=== PATIENT | female | born 1955 | race Caucasian/White ===

== ENCOUNTER 2018-06-02 13:15 | Observation (INO) | payer OTHER ==
--- OUTSIDE RECORDS SUMMARY | 2018-06-02 13:18 | XMS REPORT | Continuity of Care Document ---
:1955 Author Organization Interface Problems Problem Status Onset Classification Date Comments Source Date Reported RESPIRATORY Active 04/18/20 [facility] FAILURE 17 AMS Active 04/18/20 [facility] 17 Anxiety Resolved Problem 04/25/2017 [facility] Bipolar 1 Resolved Problem 04/25/2017 with schizo [facility] disorder<sup>1< affects /sup> History of Active Problem 04/25/2017 [facility] substance abuse Depression Resolved Problem 04/25/2017 [facility] ACUTE Active [facility] RESPIRATORY FAILURE, UNSP W HYPOXI Medications Medication Details Route Status Patient Ordering Order Source Instructions Provider Date Glucagon 1 mg, Route: No Longer IM, Drug form: Active 2016 [facility] PDR/INJ, PRN, Dosing Weight 111.4, kg, PRN Blood Glucose Results, Start date: 04/21/17 21:59:00 CDT, Duration: 30 day, Stop date: 05/21/17 21:58:00 CDT Dextrose 50% 12.5 gm, 25 No Longer Syringe mL, Route: Active 2016 [facility] IVP, Drug Form: INJ, Dosing Weight 111.4, kg, PRN, PRN Blood Glucose Results, Start date: 04/21/17 21:59:00 CDT, Duration: 30 day, Stop date: 05/21/17 21:58:00 CDT Insulin, Aspart, 6 unit, 0.06 No Longer Human mL, Route: Active 2016 [facility] SUB-Q, Drug form: SOLN, TID-Before Meals, Dosing Weight 111.4, kg, PRN Blood Glucose Results, Start date: 04/21/17 21:59:00 CDT, Duration: 30 day, Stop date: 05/21/17 21:58:00 CDTNotes: Roll in palms of hands gently; Do not shake vigorously. (Same as: NovoLOG) "single patient use only" WASTE: F/P - Black; E - Municipal Trash Bin Stable for 28 days at room temperature. Expires in days from Date Dextrose 50% in 50 mL, Route: No Longer Water IV IVP, Start Active 2016 [facility] date: 04/21/17 21:56:00 CDT, Duration: 30 day, Stop date: 05/21/17 21:55:00 CDT, PRN Blood Glucose Results glucagon 1 mg, Route: No Longer IV, Drug form: Active 2016 [facility] PDR/INJ, PRN, PRN Blood Glucose Results, Start date: 04/21/17 21:56:00 CDT, Duration: 30 day, Stop date: 05/21/17 21:55:00 CDT insulin aspart 15 unit, 0.15 No Longer mL, Route: Active 2016 [facility] SUB-Q, Drug form: SOLN, Sliding Scale, PRN Blood Glucose Results, Start date: 04/21/17 21:56:00 CDT, Duration: 30 day, Stop date: 05/21/17 21:55:00 CDTNotes: Roll in palms of hands gently; Do not shake vigorously. (Same as: NovoLOG) "single patient use only" WASTE: F/P - Black; E - Municipal Trash Bin Stable for 28 days at room temperature. Expires in days from Date insulin aspart 3 unit, 0.03 No Longer mL, Route: Active 2016 [facility] SUB-Q, Drug form: SOLN, Sliding Scale, PRN Blood Glucose Results, Start date: 04/21/17 21:55:00 CDT, Duration: 30 day, Stop date: 05/21/17 21:54:00 CDTNotes: Roll in palms of hands gently; Do not shake vigorously. (Same as: NovoLOG) "single patient use only" WASTE: F/P - Black; E - Municipal Trash Bin Stable for 28 days at room temperature. Expires in days from Date Haldol 1 mg, 0.2 mL, No Longer Route: IV, Active 2016 [facility] Drug form: INJ, TID, Dosing Weight 111.4, kg, PRN as needed for agitation, Start date: 04/21/17 17:56:00 CDT, Duration: 30 day, Stop date: 05/21/17 17:55:00 CDTNotes: (Same as: Haldol) Cipro 500 mg, 1 tab, No Longer Route: PO, Active 2016 [facility] Drug form: TAB, [id number], Start date: 04/20/17 20:00:00 CDT, Stop date: 04/23/17 8:00:00 CDT, ABX Indication: Urinary Tract InfectionNotes : May interfere w/enteral feedings - Take 1 hr before or 2 hrs after antacids, dairy pdt & minerals. On empty stomach. Metformin 500 mg, 1 tab, No Longer hydrochloride Route: PO, Active 2016 [facility] 500 MG Oral Drug form: Tablet TAB, BID-Meals, Dosing Weight 111.4, kg, Start date: 04/20/17 17:00:00 CDT, Duration: 30 day, Stop date: 05/20/17 8:00:00 CDTNotes: (Same as: Glucophage) Take with meal Cipro 250 mg, Route: Inactive PO, Drug form: 2016 [facility] TAB, [id number], Dosing Weight 111.4, kg, Start date: 04/20/17 16:00:00 CDT, Duration: 3 day, Stop date: 04/23/17 4:00:00 CDT, ABX Indication: Urinary Tract Infection Nicotine 7 mg, 1 patch, No Longer Route: TOP, Active 2016 [facility] Drug form: ERFILM, Daily, Dosing Weight 111.4, kg, Start date: 04/20/17 9:00:00 CDT, Duration: 30 day, Stop date: 05/19/17 9:00:00 CDTNotes: (Same as: Habitrol) "Remove old patch before application of new patch" WASTE: F/P - P Waste Black; E - P Waste Black remove patch 1 patch, No Longer Route: TOP, Active 2016 [facility] Drug form: ERFILM, Daily, Start date: 04/20/17 9:00:00 CDT, Duration: 30 day, Stop date: 05/19/17 9:00:00 CDTNotes: Remove old patch before application of new patch. WASTE: F/P - P Waste Black; E - P Waste Black potassium 20 mEq, 1 tab, Inactive chloride Route: PO, 2016 [facility] Drug form: ERTAB, ONCE, Dosing Weight 111.4, kg, Start date: 04/19/17 21:33:00 CDT, Stop date: 04/19/17 21:33:00 CDTNotes: (Same as: K-Dur 20) "Do Not Crush" With food and full glass of water Seroquel 100 mg, 1 tab, No Longer Route: PO, Active 2016 [facility] Drug form: TAB, Bedtime, Dosing Weight 111.4, kg, Start date: 04/19/17 21:00:00 CDT, Duration: 30 day, Stop date: 05/18/17 21:00:00 CDTNotes: (Same as: SEROquel) Benztropine 1 mg, 1 tab, No Longer Route: PO, Active 2016 [facility] Drug form: TAB, BID, Dosing Weight 111.4, kg, Start date: 04/19/17 17:00:00 CDT, Duration: 30 day, Stop date: 05/19/17 9:00:00 CDTNotes: (Same As: Cogentin) gabapentin 600 mg, 2 cap, No Longer Route: PO, Active 2016 [facility] Drug form: CAP, Q8H, Dosing Weight 111.4, kg, (CrCl > 60 ml/min), Start date: 04/19/17 16:00:00 CDT, Duration: 30 day, Stop date: 05/19/17 8:00:00 CDTNotes: (Same as: Neurontin) lithium 300 mg 300 mg=1 tab, Active oral tablet PO, Bedtime, 0 2016 [facility] Refill(s) Mucinex 600 mg, PO, No Longer Q12H, PRN Active 2016 [facility] Congestion, 0 Refill(s) Clonidine 0.1 mg=1 tab, No Longer Hydrochloride PO, Q4H, PRN Active 2016 [facility] 0.1 MG Oral Withdrawal, 0 Tablet Refill(s) Aluminum 30 mL, PO, No Longer Hydroxide 40 Q4H, PRN Active 2016 [facility] MG/ML / Heartburn, 0 Magnesium Refill(s) Hydroxide 40 MG/ML Oral Suspension Trazodone 100 mg=1 tab, Active Hydrochloride PO, Bedtime, 2016 [facility] 100 MG Oral PRN Insomnia, Tablet 0 Refill(s) Amoxicillin 500 mg, PO, No Longer TID, 0 Active 2016 [facility] Refill(s) methocarbamol 1,500 mg=2 No Longer 750 mg oral tab, PO, BID, Active 2016 [facility] tablet PRN Muscle Spasms, 0 Refill(s) Hydroxyzine 50 mg=1 tab, No Longer Hydrochloride 50 PO, TID, # 40 Active 2016 [facility] MG Oral Tablet tab, 0 Refill(s) gabapentin 600 600 mg=1 tab, No Longer MG Oral Tablet PO, TID, # 270 Active 2016 [facility] tab, 0 Refill(s) Acetaminophen 650 mg, PO, No Longer Q4H, PRN Pain Active 2016 [facility] Score 1-5, 0 Refill(s) chlorproMAZINE 50 mg=1 tab, Active 50 mg oral PO, Bedtime, 0 2016 [facility] tablet Refill(s) QUEtiapine 100 100 mg=1 tab, Active mg oral tablet PO, Bedtime, 0 2016 [facility] Refill(s) Buprenorphine 6 mg, SL, TID, No Longer 0 Refill(s) Active 2016 [facility] Icy Hot 1 appl, TOP, No Longer BID, 0 Active 2016 [facility] Refill(s) magnesium 2.4 gm=30 mL, No Longer hydroxide 8% PO, Q6H, PRN Active 2016 [facility] oral suspension as needed for constipation, 0 Refill(s) benztropine 1 mg 1 mg=1 tab, Active oral tablet PO, BID, # 60 2016 [facility] tab, 0 Refill(s) potassium 45 mmol, 15 No Longer phosphate + mL, Route: Active 2016 [facility] sodium chloride IVPB, PRN, 0.9% INJ 250 mL Dosing Weight 111.4, kg, PRN Abnormal Lab Result, Start date: 04/19/17 3:37:00 CDT, Duration: 30 day, Stop date: 05/19/17 3:36:00 CDT, FOR ICU USE ONLYNotes: (Same as: K Phosphate.) 1 mMol phoshate has 1.47 mEq potassium Infuse over 4 hours Magnesium Oxide 800 mg, 2 tab, No Longer Route: PO, Active 2016 [facility] Drug form: TAB, PRN, Dosing Weight 111.4, kg, PRN Abnormal Lab Result, FOR ICU USE ONLY, Start date: 04/19/17 3:37:00 CDT, Duration: 30 day, Stop date: 05/19/17 3:36:00 CDTNotes: (Same as: Mag-Ox 400) Magnesium oxide [id number] elemental magnesium Dose=____mg magnesium oxide (___mg elemental magnesium) Magnesium 2 gm, 50 mL, No Longer Sulfate Route: IVPB, Active 2016 [facility] Drug form: INJ, PRN, Dosing Weight 111.4, kg, PRN Abnormal Lab Result, Start date: 04/19/17 3:37:00 CDT, Duration: 30 day, Stop date: 05/19/17 3:36:00 CDT, FOR ICU USE ONLYNotes: WASTE: F/P - Sink; E - Municipal Trash Bin potassium 2 pkt, Route: No Longer phosphate-sodium PO, Drug Form: Active 2016 [facility] phosphate 250 PDR/REC, mg-280 mg-160 mg Dosing Weight oral powder for 111.4, kg, reconstitution PRN, PRN Abnormal Lab Result, FOR ICU USE ONLY, Start date: 04/19/17 3:37:00 CDT, Duration: 30 day, Stop date: 05/19/17 3:36:00 CDTNotes: (Same as: Phos-NaK) Each 1.5 gm pkt has 250mg phosphorous. Mix w/2.5oz water and stir. potassium 30 mmol, 250 No Longer phosphate mL, Route: Active 2016 [facility] IVPB, Drug form: INJ, PRN, Dosing Weight 111.4, kg, PRN Abnormal Lab Result, Start date: 04/19/17 3:37:00 CDT, Duration: 30 day, Stop date: 05/19/17 3:36:00 CDT, FOR ICU USE ONLYNotes: (Same as: K Phosphate.) sodium phosphate 45 mmol, 15 No Longer + sodium mL, Route: Active 2016 [facility] chloride 0.9% IVPB, PRN, INJ 250 mL Dosing Weight 111.4, kg, PRN Abnormal Lab Result, Start date: 04/19/17 3:37:00 CDT, Duration: 30 day, Stop date: 05/19/17 3:36:00 CDT, FOR ICU USE ONLY sodium phosphate 30 mmol, 250 No Longer mL, Route: Active 2016 [facility] IVPB, Drug form: INJ, PRN, Dosing Weight 111.4, kg, PRN Abnormal Lab Result, Start date: 04/19/17 3:37:00 CDT, Duration: 30 day, Stop date: 05/19/17 3:36:00 CDT, FOR ICU USE ONLY Calcium 1 gm, 50 mL, No Longer Gluconate Route: IVPB, Active 2016 [facility] Drug form: INJ, PRN, Dosing Weight 111.4, kg, PRN Abnormal Lab Result, Start date: 04/19/17 3:37:00 CDT, Duration: 30 day, Stop date: 05/19/17 3:36:00 CDT, FOR ICU USE ONLYNotes: WASTE: F/P - Sink; E - Municipal Trash Bin Calcium 1,000 mg, 2 No Longer Carbonate 500 MG tab, Route: Active 2016 [facility] Chewable Tablet PO, Drug form: CHEWTAB, PRN, Dosing Weight 111.4, kg, PRN Abnormal Lab Result, FOR ICU USE ONLY, Start date: 04/19/17 3:37:00 CDT, Duration: 30 day, Stop date: 05/19/17 3:36:00 CDTNotes: (Same As: Tumsreekanth) Calcium Carbonate 500 rd=662 mg elemental calcium Dose= mg calcium carbonate ( mg elemental calcium) potassium 10 mEq, 100 No Longer chloride mL, Route: Active 2016 [facility] IVPB, Drug form: INJ, PRN, Dosing Weight 111.4, kg, PRN Abnormal Lab Result, Via peripheral line, Start date: 04/19/17 3:37:00 CDT, Duration: 30 day, Stop date: 05/19/17 3:36:00 CDT, FOR ICU USE ONLYNotes: Infuse at a rate of 10 mEq/hr. (Same as: KCL) ocular lubricant 1 appl, Route: Inactive BOTH EYES, 2016 [facility] Q6H, Drug form: OINT, Start date: 04/19/17 0:00:00 CDT, Duration: 30 day, Stop date: 05/18/17 18:00:00 CDTNotes: (Same as: Lacri-Lube, Duratears Naturale, Artificial Tears, and Tears Again ) cefepime 1 gm, Route: Inactive IVPB, ABXQ8H, 2016 [facility] Dosing Weight 111.4, kg, (CrCl >/=50 ml/min), Start date: 04/18/17 22:00:00 CDT, Duration: 5 day, Stop date: 04/23/17 14:00:00 CDT, ABX Indication: Urinary Tract InfectionNotes : (Same As: Maxipime) MEDICATION WASTE Product Size: 1000 mg Product Wasted: _0__ mg chlorhexidine 15 mL, Route: Inactive gluconate 1.2 Swab Mouth, 2016 [facility] MG/ML Mouthwash Q12H, Drug form: LIQ, Start date: 04/18/17 21:00:00 CDT, Duration: 30 day, Stop date: 05/18/17 9:00:00 CDTNotes: (Same As: Peridex) Saline Flush 10 ml, Route: No Longer 0.9% IVP, Drug Active 2016 [facility] Form: INJ, Dosing Weight 111.364, kg, Q12H, Start date: 04/18/17 21:00:00 CDT, Duration: 30 day, Stop date: 05/18/17 9:00:00 CDTNotes: (Same as: BD Posiflush) Famotidine 20 mg, 2 mL, No Longer Route: IVP, Active 2016 [facility] Drug form: INJ, Q12H, Dosing Weight 111.4, kg, Start date: 04/18/17 21:00:00 CDT, Duration: 30 day, Stop date: 05/18/17 9:00:00 CDTNotes: (Same as: Pepcid) Can be dilute in 5-10cc NS IVP: Slow IV push over at least 2 minutes. Levemir 15 unit, 0.15 No Longer mL, Route: Active 2016 [facility] SUB-Q, Drug form: INJ, Q12H, Dosing Weight 111.4, kg, Start date: 04/18/17 20:48:00 CDT, Duration: 30 day, Stop date: 05/18/17 9:00:00 CDTNotes: Same as Levemir Do not hold insulin without contacting prescriber WASTE: F/P - Black; E - [employer] Trash Bin "single patient use only" chlorhexidine 15 mL, Route: No Longer gluconate 1.2 Swab Mouth, Active 2016 [facility] MG/ML Mouthwash PRN, Drug form: LIQ, PRN Other -See Comment, Start date: 04/18/17 20:07:00 CDT, Duration: 30 day, Stop date: 05/18/17 20:06:00 CDTNotes: (Same As: Peridex) Ciprofloxacin 400 mg, 200 No Longer mL, Route: Active 2016 [facility] IVPB, Drug form: INJ, [id number], Dosing Weight 111.4, kg, Start date: 04/18/17 19:00:00 CDT, Duration: 5 day, Stop date: 04/23/17 8:00:00 CDT, ABX Indication: Urinary Tract InfectionNotes : Do not refrigerate Albuterol 0.833 3 mL, Route: No Longer MG/ML / NEB, Drug Active 2016 [facility] Ipratropium Form: SOLN, [place] 0.167 Dosing Weight MG/ML Inhalant 111.364, kg, Solution RQ4H, Start date: 04/18/17 19:00:00 CDT, Duration: 30 day, Stop date: 05/18/17 15:00:00 CDTNotes: (Same as: Duoneb) ocular lubricant 1 appl, Route: Inactive BOTH EYES, 2016 [facility] Q6H, Drug form: OINT, Start date: 04/18/17 18:00:00 CDT, Duration: 30 day, Stop date: 05/18/17 12:00:00 CDTNotes: (Same as: Lacri-Lube, Duratears Naturale, Artificial Tears, and Tears Again ) glucagon 1 mg, Route: No Longer INJ, Drug Active 2016 [facility] form: PDR/INJ, PRN, PRN Blood Glucose Results, Start date: 04/18/17 17:38:00 CDT, Duration: 30 day, Stop date: 05/18/17 17:37:00 CDT Dextrose 50% in 25 gm, 50 mL, No Longer Water IV Route: IVP, Active 2016 [facility] Drug Form: INJ, PRN, PRN Blood Glucose Results, Start date: 04/18/17 17:38:00 CDT, Duration: 30 day, Stop date: 05/18/17 17:37:00 CDT insulin aspart 12 unit, 0.12 No Longer mL, Route: Active 2016 [facility] SUB-Q, Drug form: SOLN, Sliding Scale, PRN Blood Glucose Results, Start date: 04/18/17 17:38:00 CDT, Duration: 30 day, Stop date: 05/18/17 17:37:00 CDTNotes: Roll in palms of hands gently; Do not shake vigorously. (Same as: NovoLOG) "single patient use only" WASTE: F/P - Black; E - Municipal Trash Bin Stable for 28 days at room temperature. Expires in days from Date insulin aspart 6 unit, 0.06 No Longer mL, Route: Active 2016 [facility] SUB-Q, Drug form: SOLN, Sliding Scale, PRN Blood Glucose Results, Start date: 04/18/17 17:37:00 CDT, Duration: 30 day, Stop date: 05/18/17 17:36:00 CDTNotes: Roll in palms of hands gently; Do not shake vigorously. (Same as: NovoLOG) "single patient use only" WASTE: F/P - Black; E - Municipal Trash Bin Stable for 28 days at room temperature. Expires in days from Date chlorhexidine 15 mL, Route: Inactive gluconate 1.2 Swab Mouth, 2016 [facility] MG/ML Mouthwash PRN, Drug form: LIQ, PRN Other -See Comment, Start date: 04/18/17 17:11:00 CDT, Duration: 30 day, Stop date: 05/18/17 17:10:00 CDTNotes: (Same As: Peridex) Etomidate 20 mg, 10 mL, Inactive Route: IVP, 2016 [facility] Drug form: INJ, ONCE, Dosing Weight 111.4, kg, Start date: 04/18/17 17:03:00 CDT, Stop date: 04/18/17 17:03:00 CDTNotes: (Same as: Amidate). Per state nursing law etomidate can only be given by a nurse if patient is intubated or being intubated (unless the nurse is a [employer]). Rocuronium 50 mg, 5 mL, Inactive Route: IVP2016 [facility] Drug form: INJ, ONCE, Dosing Weight 111.4, kg, Start date: 04/18/17 17:03:00 CDT, Stop date: 04/18/17 17:03:00 CDTNotes: (Same as: Zemelvinon) Fentanyl 1,250 No Longer microgram, 250 Active 2016 [facility] mL, Rate: Titrate, Start Dose: 50 microgram/hr, Titration: 25 micrograms/tiffany r every 15 minutes, Goal(s): rass of 0 to -1, Max Dose: 300 microgram/hr, Route: IV, Dosing Weight 111.4 kg, Total Volume: 250, Start date: 04/18/17 16:58...Notes: Concentration: 5 microgram / ml Fentanyl 50 microgram, Inactive 1 mL, Route: 2016 [facility] IVP, Drug form: INJ, ONCE, Dosing Weight 111.4, kg, Start date: 04/18/17 16:47:00 CDT, Stop date: 04/18/17 16:47:00 CDTNotes: (Same as: Sublimaze) Preservative free. hydrALAZINE 10 mg, 0.5 mL, No Longer Route: IVP, Active 2016 [facility] Drug form: INJ, Q4H, PRN Elevated BP, Start date: 04/18/17 16:24:00 CDT, Duration: 30 day, Stop date: 05/18/17 16:23:00 CDTNotes: (Same as: Apresoline) Push over 5 minutes Sodium Chloride 250 mL, Route: No Longer 0.9% IV IVPB, Start Active 2016 date: 04/18/17 16:21:00 CDT, Duration: 30 day, Stop date: 05/18/17 16:20:00 CDT, PRN Line Flush heparin 5,000 unit, 1 No Longer mL, Route: Active 2016 [facility] SUB-Q, Drug form: INJ, Q8H, Dosing Weight 111.364, kg, Start date: 04/18/17 16:00:00 CDT, Duration: 30 day, Stop date: 05/18/17 8:00:00 CDTNotes: porcine heparin Labetalol 5 mg, Route: Inactive IVP, Drug 2016 [facility] form: INJ, Q3H, Dosing Weight 111.364, kg, PRN Hypertension, Start date: 04/18/17 14:48:00 CDT, Duration: 30 day, Stop date: 05/18/17 14:47:00 CDT Saline Flush 10 ml, Route: Inactive 0.9% IVP, Drug 2016 [facility] Form: INJ, Dosing Weight 111.364, kg, PRN, PRN Line Flush, Start date: 04/18/17 14:43:00 CDT, Duration: 30 day, Stop date: 05/18/17 14:42:00 CDTNotes: (Same as: BD Posiflush) Nystatin 100 1 appl, Route: No Longer UNT/MG Topical TOP, PRN, Drug Active 2016 [facility] Powder form: PWDR, PRN For Fungal Prophylaxis, Start date: 04/18/17 14:43:00 CDT, Duration: 30 day, Stop date: 05/18/17 14:42:00 CDTNotes: (Same as:Mycostatin, Nilstat) For external use only. Cipro 400 mg, 200 Inactive mL, Route: 2016 [facility] IVPB, Drug form: INJ, ONCE, Dosing Weight 111.364, kg, Priority: STAT, Start date: 04/18/17 12:57:00 CDT, Duration: 1 doses or times, Stop date: 04/18/17 12:57:00 CDT, ABX Indication: PneumoniaNotes : Do not refrigerate cefepime 1 gm, Route: Inactive IVPB, ONCE, 2016 [facility] Dosing Weight 111.364, kg, Priority: STAT, Start date: 04/18/17 12:57:00 CDT, Duration: 1 doses or times, Stop date: 04/18/17 12:57:00 CDT, ABX Indication: PneumoniaNotes : (Same As: Maxipime) MEDICATION WASTE Product Size: 1000 mg Product Wasted: ___ mg Solu-Medrol 125 mg, 2 mL, Inactive Route: IVP, 2016 [facility] Drug form: INJ, ONCE, Dosing Weight 111.364, kg, Priority: STAT, Start date: 04/18/17 12:55:00 CDT, Stop date: 04/18/17 12:55:00 CDTNotes: (Same as:Solu-MEDROL , A-Methapred) Albuterol 0.833 3 mL, Route: Inactive MG/ML / NEB, Drug 2016 [facility] Ipratropium Form: SOLN, [place] 0.167 Dosing Weight MG/ML Inhalant 111.364, kg, Solution ONCE, STAT, Start date: 04/18/17 12:08:00 CDT, Stop date: 04/18/17 12:08:00 CDTNotes: (Same as: Duoneb) Saline Flush 10 mL, Route: No Longer 0.9% IVP, Drug Active 2016 [facility] Form: INJ, Dosing Weight 111.364, kg, PRN, PRN Line Flush, Start date: 04/18/17 12:05:00 CDT, Duration: 30 day, Stop date: 05/18/17 12:04:00 CDTNotes: (Same as: BD Posiflush) Furosemide 40 mg, 4 mL, Inactive Route: IVP, 2016 [facility] Drug form: INJ, ONCE, Dosing Weight 111.364, kg, Priority: STAT, Start date: 04/18/17 12:05:00 CDT, Stop date: 04/18/17 12:05:00 CDTNotes: (Same as: Lasix) MEDICATION WASTE Product Size: 40 mg Product Wasted: ___ mg Allergies, Adverse Reactions, Alerts Substance Category Reaction Severity Reaction Status Date Comments Source type Reported NKDA Assertion Drug Active allergy [facility] Immunizations Immunization Date Site Status Last Comments Source Given Updated pneumococcal Right completed [place] [facility] 23-valent 7 deltoid vaccine Results Order Name Results Value Reference Date Interpretation Comments Source Range HEMATOLOGY RDW 13.9 % 11.5 - 04/21 14. [facility] HEMATOLOGY Platelet 217 K/CMM 133 - 450 04/21 [facility] HEMATOLOGY MPV 9.8 fL 7.4 - 10.4 04/21 [facility] HEMATOLOGY Hgb 12.8 g/dL 12.0 - 04/21 16.0 [facility] HEMATOLOGY Hct 38.5 % 36.0 - 04/21 48.0 [facility] HEMATOLOGY MCV 91.5 fL 80.0 - 04/21 98.0 [facility] HEMATOLOGY MCH 30.4 pg 27.0 - 04/21 MH 31.0 [facility] HEMATOLOGY MCHC 33.2 g/dL 32.0 - 04/21 36.0 [facility] HEMATOLOGY WBC 11.8 K/CMM 3.7 - 10.4 04/21 [facility] HEMATOLOGY RBC 4.20 M/CMM 4.20 - 04/21 5.40 /2016 [facility] CHEM PANEL Magnesium 2.1 mg/dL 1.8 - 2.4 04/20 MH Lvl [facility] CHEM PANEL Phosphorus 3.0 mg/dL 2.5 - 4.5 04/20 [facility] CHEM PANEL eGFR 106 04/20 Result Comment: The eGFR is calculated using the CKD-EPI formula. In most young, healthy individuals the eGFR will be >90 mL/ min/1.73m2. The eGFR declines with age. An eGFR of 60-89 may be normal in [facility] mL/min/1. some populations, particularly the elderly, for whom the CKD-EPI formula has not been extensively validated. Use of the eGFR is not recommended in the following populations: [place] 3m2 Individuals with unstable creatinine concentrations, including patients and those with serious co-morbid conditions. Patients with extremes in muscle mass or diet. The data above are obtained from the National Kidney Disease Education Program (NKDEP) which additionally recommends that when the eGFR is used in patients with extremes of body mass index for purposes of drug dosing, the eGFR should be multiplied by the estimated BMI. CHEM PANEL Potassium 4.0 meq/L 3.5 - 5.1 04/20 MH Lvl /2016 [facility] CHEM PANEL Sodium Lvl 140 meq/L 135 - 145 04/20 [facility] CHEM PANEL Creatinine 0.50 mg/dL 0.50 - 04/20 MH Lvl 1.40 [facility] CHEM PANEL Glucose Lvl 154 mg/dL 70 - 99 04/20 [facility] CHEM PANEL BUN 18 mg/dL 7 - 22 04/20 [facility] CHEM PANEL CO2 25 meq/L 24 - 32 04/20 [facility] CHEM PANEL AGAP 12.0 meq/L 10.0 - 04/20 MH 20.0 [facility] CHEM PANEL Chloride Lvl 107 meq/L 95 - 109 04/20 [facility] CHEM PANEL Calcium Lvl 8.9 mg/dL 8.5 - 10.5 04/20 [facility] HEMATOLOGY MCV 92.9 fL 80.0 - 04/20 MH 98.0 [facility] HEMATOLOGY MCH 30.2 pg 27.0 - 04/20 [facility] 31.0 [facility] [facility] HEMATOLOGY Hgb 11.8 g/dL 12.0 - 04/20 MH 16.0 [facility] HEMATOLOGY Hct 36.4 % 36.0 - 04/20 MH 48.0 [facility] HEMATOLOGY MCHC 32.5 g/dL 32.0 - 04/20 MH 36.0 [facility] HEMATOLOGY RDW 13.8 % 11.5 - 04/20 MH 14.5 [facility] HEMATOLOGY Platelet 181 K/CMM 133 - 450 04/20 [facility] HEMATOLOGY MPV 10.1 fL 7.4 - 10.4 04/20 [facility] HEMATOLOGY RBC 3.92 M/CMM 4.20 - 04/20 MH 5.40 [facility] HEMATOLOGY WBC 14.4 K/CMM 3.7 - 10.4 04/20 [facility] HEMATOLOGY Basophils 0.6 % 0.0 - 1.0 04/20 [facility] HEMATOLOGY Eosinophils 0.3 % 0.0 - 4.0 / MH /2016 [facility] HEMATOLOGY Monocytes 7.5 % 2.0 - 12.0 04/20 [facility] HEMATOLOGY Lymphocytes 21.0 % 20.0 - 04/20 MH 40.0 /2016 [facility] HEMATOLOGY Segs 70.6 % 45.0 - 04/20 MH 75.0 /2017 [facility] HEMATOLOGY Segs-Bands # 10.1 K/CMM 1.5 - 8.1 04/20 [facility] HEMATOLOGY Lymphocytes 3.0 K/CMM 1.0 - 5.5 /16 MH # /2017 [facility] HEMATOLOGY Basophils # 0.1 K/CMM 0.0 - 0.2 04/20 [facility] HEMATOLOGY Monocytes # 1.1 K/CMM 0.0 - 0.8 04/20 [facility] CHEM PANEL Phosphorus 3.8 mg/dL 2.5 - 4.5 04/19 [facility] CHEM PANEL eGFR 95 04/19 Result Comment: The eGFR is calculated using the CKD-EPI formula. In most young, healthy individuals the eGFR will be >90 mL/ min/1.73m2. The eGFR declines with age. An eGFR of 60-89 may be normal in mL/min/1.7 some populations, particularly the elderly, for whom the CKD-EPI formula has not been extensively validated. Use of the eGFR is not recommended in the following populations: [address] Individuals with unstable creatinine concentrations, including patients and those with serious co-morbid conditions. Patients with extremes in muscle mass or diet. The data above are obtained from the National Kidney Disease Education Program (NKDEP) which additionally recommends that when the eGFR is used in patients with extremes of body mass index for purposes of drug dosing, the eGFR should be multiplied by the estimated BMI. CHEM PANEL Potassium 3.4 meq/L 3.5 - 5.1 04/19 MH Lvl /2016 [facility] CHEM PANEL Creatinine 0.70 mg/dL 0.50 - 04/19 Lvl 1.40 /2016 [facility] CHEM PANEL BUN 23 mg/dL 7 - 22 04/19 [facility] CHEM PANEL Chloride Lvl 105 meq/L 95 - 109 04/19 [facility] CHEM PANEL CO2 28 meq/L 24 - 32 04/19 [facility] CHEM PANEL Calcium Lvl 9.3 mg/dL 8.5 - 10.5 04/19 [facility] CHEM PANEL Sodium Lvl 140 meq/L 135 - 145 04/19 [facility] CHEM PANEL Glucose Lvl 161 mg/dL 70 - 99 04/19 [facility] CHEM PANEL AGAP 10.4 meq/L 10.0 - 04/19 MH . [facility] CHEM PANEL Magnesium 2.4 mg/dL 1.8 - 2.4 04/19 [facility] PARATHYROI Ca Norm WB 1.16 1.05 - 04/19 D PROFILE mMol/L . [facility] PARATHYROI Ca Ion WB 1.16 1.05 - 04/19 D PROFILE mMol/L . [facility] CHEM PANEL Magnesium 1.8 mg/dL 1.8 - 2.4 04/19 MH [facility] CHEM PANEL Phosphorus 1.0 mg/dL 2.5 - 4.5 04/19 Result Comment: [facility] Critical Result(s) called to Hasmukh Oden at 04/19/2017 10:05 by BV. Read back OK. ELECTROLYT Sodium Lvl 140 meq/L 135 - 145 04/19 [facility] ELECTROLYT Chloride Lvl 107 meq/L 95 - 109 04/19 [facility] ELECTROLYT CO2 25 meq/L 24 - 32 04/19 [place] ELECTROLYT eGFR 100 04/19 Result Comment: The eGFR is calculated using the CKD-EPI formula. In most young, healthy individuals the eGFR will be >90 mL/ min/1.73m2. The eGFR declines with age. An eGFR of 60-89 may be normal in mL/min/1. some populations, particularly the elderly, for whom the CKD-EPI formula has not been extensively validated. Use of the eGFR is not recommended in the following populations: [facility] 3m2 Individuals with unstable creatinine concentrations, including patients and those with serious co-morbid conditions. Patients with extremes in muscle mass or diet. The data above are obtained from the National Kidney Disease Education Program (NKDEP) which additionally recommends that when the eGFR is used in patients with extremes of body mass index for purposes of drug dosing, the eGFR should be multiplied by the estimated BMI. ELECTROLYT AGAP 11.6 meq/L 10.0 - 04/19 ES [facility] ELECTROLYT Calcium Lvl 8.1 mg/dL 8.5 - 10.5 04/19 [facility] ELECTROLYT Potassium 3.6 meq/L 3.5 - 5.1 04/19 Result ES Lvl Comment: [facility] Specimen Slightly Hemolyzed. ELECTROLYT BUN 22 mg/dL 7 - 22 04/19 [facility] ELECTROLYT Creatinine 0.60 mg/dL 0.50 - 04/19 ES Lvl 1.40 /2016 [facility] ELECTROLYT Glucose Lvl 216 mg/dL 70 - 99 04/19 [facility] PARATHYROI Ca Ion WB 1.00 1.05 - 04/19 D PROFILE mMol/L . [facility] PARATHYROI Ca Norm WB 1.05 . - 04/19 MH D PROFILE mMol/L . [facility] HEMATOLOGY Eosinophils 0.0 % 0.0 - 4.0 04/19 [facility] HEMATOLOGY Monocytes 4.2 % 2.0 - 12.0 04/19 [facility] HEMATOLOGY Segs-Bands # 12.5 K/CMM 1.5 - 8.1 04/19 [facility] HEMATOLOGY Basophils 0.5 % 0.0 - 1.0 04/19 [facility] HEMATOLOGY Lymphocytes 1.4 K/CMM 1.0 - 5.5 04/19 /2016 [facility] HEMATOLOGY Monocytes # 0.6 K/CMM 0.0 - 0.8 04/19 [facility] HEMATOLOGY Eosinophils 0.0 K/CMM 0.0 - 0.5 04/19 /2016 [facility] HEMATOLOGY Basophils # 0.1 K/CMM 0.0 - 0.2 04/19 [facility] HEMATOLOGY Segs 85.7 % 45.0 - 04/19 75.0 [facility] HEMATOLOGY Lymphocytes 9.6 % 20.0 - 04/19 40.0 [facility] HEMATOLOGY MCH 30.3 pg 27.0 - 04/19 MH 31.0 [facility] HEMATOLOGY MCHC 33.6 g/dL 32.0 - 04/19 MH 36.0 [facility] HEMATOLOGY Platelet 179 K/CMM 133 - 450 04/19 [facility] HEMATOLOGY RDW 13.3 % 11.5 - 04/19 MH 14.5 [facility] HEMATOLOGY MPV 10.0 fL 7.4 - 10.4 04/19 [facility] HEMATOLOGY MCV 90.1 fL 80.0 - 04/19 MH 98.0 /2017 [facility] HEMATOLOGY WBC 14.6 K/CMM 3.7 - 10.4 04/19 /2016 [facility] HEMATOLOGY RBC 4.00 M/CMM 4.20 - 04/19 MH 5.40 /2016 [facility] HEMATOLOGY Hgb 12.1 g/dL 12.0 - 04/19 MH 16.0 /2016 [facility] HEMATOLOGY Hct 36.0 % 36.0 - 04/19 MH 48.0 [facility] PARATHYROI Ca Ion WB 0.87 1.05 - 04/19 Result D PROFILE mMol/L 10.30 Comment: [facility] Critical Result(s) called to Francisco Manriquez at 04/19/2017 04:46 byCT. Read back OK. PARATHYROI Ca Norm WB 0.92 1. - 04/19 D PROFILE mMol/L 10.30 [facility] CARDIAC CK MB Index 0.7 0.0 - 2.5 04/19 ENZYMES [facility] CARDIAC Troponin-I 0.19 ng/mL 0.00 - 04/19 ENZYMES 0.40 [facility] CARDIAC CK MB 1.3 ng/mL 0.5 - 3.6 04/19 ENZYMES [facility] CARDIAC Total CK 193 unit/L 12 - 191 04/19 ENZYMES [facility] CARDIAC Total CK 193 unit/L 12 - 191 04/19 ENZYMES [facility] BACTERIAL Source Strep Urine 04/18 - SEROLOGY /2016 [facility] *NA* (04/18/17 3:47 PM) BACTERIAL Strep Negative Negative 04/18 MH - SEROLOGY [facility] Ag (04/18/17 3:47 PM) BACTERIAL MRSA by PCR Negative 04/18 MH - SEROLOGY /2016 [facility] (04/18/17 3:47 PM) CARDIAC Total CK 102 unit/L 12 - 191 04/18 ENZYMES [facility] CARDIAC CK MB 1.6 ng/mL 0.5 - 3.6 04/18 ENZYMES /2016 [facility] CARDIAC CK MB Index 1.6 0.0 - 2.5 04/18 ENZYMES /2016 [facility] CHEM PANEL Lactic Acid 1.5 mMol/L 0.5 - 2.2 04/18 Lvl /2016 [facility] CHEM PANEL Procalcitoni 0.06 ng/mL 0.00 - 04/18 n Lvl 0.10 [facility] DRUG U Amph Scr Negative Negative 04/18 MH SCREEN /2016 [facility] *NA* (04/18/17 3:47 PM) DRUG U Hawa Scr Negative Negative 04/18 SCREEN /2016 [facility] *NA* (04/18/17 3:47 PM) DRUG U Benzodia Positive Negative 04/18 SCREEN Scr [facility] *ABN* (04/18/17 3:47 PM) DRUG U Cocaine Negative Negative 04/18 SCREEN Scr /2016 [facility] *NA* (04/18/17 3:47 PM) DRUG U Phencyc Negative Negative 04/18 MH SCREEN Scr /2016 [facility] *NA* (04/18/17 3:47 PM) DRUG UDS Note See Note 04/18 SCREEN /2016 [facility] (04/18/17 3:47 PM) DRUG U Cannab Scr Negative Negative 04/18 SCREEN /2016 [facility] *NA* (04/18/17 3:47 PM) DRUG U Opiate Scr Negative Negative 04/18 SCREEN /2016 [facility] *NA* (04/18/17 3:47 PM) HEMATOLOGY PTT 29.9 s 22.9 - 04/18 35.8 [facility] HEMATOLOGY PT 13.3 s 12.0 - 04/18 MH 14.7 [facility] HEMATOLOGY INR 0.99 0.85 - 04/18 1. [facility] IMMUNOLOGY HIV Ag/Ab Negative Negative 04/18 4th Gen [facility] *NA* (04/18/17 3:47 PM) LIPIDS VLDL 19 04/18 /2016 [facility] LIPIDS LDL 82 mg/dL <=99 mg/dL 04/18 (Calculated) /2016 [facility] LIPIDS HDL 44 mg/dL >=61 mg/dL 04/18 [facility] LIPIDS Chol 145 mg/dL <=199 04/18 mg/dL [facility] LIPIDS Trig 97 mg/dL <=149 04/18 mg/dL /2016 [facility] LIPIDS CHD Risk 3.30 3.90 - 04/18 5.80 /2016 [facility] SPECIAL Hgb A1C 7.7 % <=5.6 % 04/18 CHEMISTRY /2016 [facility] URINE AND UA Color Yellow 04/18 STOOL /2016 [facility] URINE AND UA Glucose 150 mg/dL 04/18 STOOL /2016 [facility] URINE AND UA null 0.1 - 1.0 04/18 STOOL Urobilinogen /2016 [facility] URINE AND UA Sq Epi None Seen 04/18 STOOL [facility] URINE AND UA Blood Small Negative 04/18 STOOL [facility] *ABN* (04/18/17 3:47 PM) URINE AND UA Nitrite Negative Negative 04/18 STOOL [facility] (04/18/17 3:47 PM) URINE AND UA Mucus Few /LPF None Seen 04/18 STOOL /LPF [facility] URINE AND UA RBC 3 /HPF 0 - 2 04/18 STOOL [facility] URINE AND UA Bacteria Many /HPF None Seen 04/18 STOOL /HPF /2016 [facility] URINE AND UA Leuk Est Moderate Negative 04/18 STOOL [facility] *ABN* (04/18/17 3:47 PM) URINE AND UA WBC 46 /HPF 0 - 5 04/18 STOOL [facility] URINE AND UA Ketones Negative Negative 04/18 STOOL mg/dL mg/dL [facility] URINE AND UA Protein Negative Negative 04/18 STOOL mg/dL mg/dL [facility] URINE AND UA Bili Negative Negative 04/18 STOOL [facility] *NA* (04/18/17 3:47 PM) URINE AND UA Spec Grav 1.012 <=1.030 04/18 STOOL [facility] URINE AND UA pH 5.0 5.0 - 8.0 04/18 STOOL [facility] URINE AND UA Turbidity Marked Clear 04/18 STOOL [facility] *ABN* (04/18/17 3:47 PM) CHEM PANEL Lactic Acid 1.8 mMol/L 0.5 - 2.2 04/18 Lvl /2016 [facility] CARDIAC CK MB Index 1.8 0.0 - 2.5 04/18 ENZYMES [facility] CARDIAC CK MB 1.8 ng/mL 0.5 - 3.6 04/18 ENZYMES [facility] CARDIAC Troponin-I 0.67 ng/mL 0.00 - 04/18 Result ENZYMES 0.40 /2017 Comment: [facility] Critical Result(s) called to katlyn mantilla RN at 04/18/2017 12:42 by DV. Read back OK. CARDIAC BNP 331 pg/mL <=100 04/18 ENZYMES pg/mL /2016 [facility] CHEM PANEL A/G Ratio 0.9 0.7 - 1.6 04/18 MH [facility] CHEM PANEL Total 6.9 g/dL 6.4 - 8.4 04/18 Protein /2016 [facility] CHEM PANEL ALT 50 unit/L 0 - 65 04/18 [facility] CHEM PANEL AST 48 unit/L 0 - 37 04/18 [facility] CHEM PANEL Albumin Lvl 3.3 g/dL 3.5 - 5.0 04/18 [facility] CHEM PANEL Alk Phos 116 unit/L 39 - 136 04/18 [facility] CHEM PANEL Bili Total 0.4 mg/dL 0.2 - 1.3 04/18 [facility] CHEM PANEL B/C Ratio 20 6 - 25 04/18 [facility] CHEM PANEL Globulin 3.6 g/dL 2.7 - 4.2 04/18 [facility] HEMATOLOGY D-Dimer 0.63 ug/mL 04/18 FE [facility] HEMATOLOGY Basophils # 0.0 K/CMM 0.0 - 0.2 04/18 [facility] HEMATOLOGY Monocytes # 0.7 K/CMM 0.0 - 0.8 04/18 [facility] HEMATOLOGY Eosinophils 0.0 K/CMM 0.0 - 0.5 04/18 # [facility] HEMATOLOGY Segs 87.3 % 45.0 - 04/18 75.0 [facility] HEMATOLOGY Basophils 0.0 % 0.0 - 1.0 04/18 [facility] HEMATOLOGY Eosinophils 0.1 % 0.0 - 4.0 04/18 [facility] HEMATOLOGY Lymphocytes 1.1 K/CMM 1.0 - 5.5 04/18 # /2016 [facility] HEMATOLOGY Monocytes 5.0 % 2.0 - 12.0 04/18 [facility] HEMATOLOGY Lymphocytes 7.6 % 20.0 - 04/18 40.0 [facility] HEMATOLOGY Segs-Bands # 12.1 K/CMM 1.5 - 8.1 04/18 [facility] Chest Chest 1view EXAM: XR CHEST 1 VIEW 04/18 [facility] 1view DX DX /2016 - [facility] DATE: 04/18/2017 5:11 PM CDT Read by: Evan Monique MD Dictated Date/time: 04/18/17 18:06 Electronically Signed by: Evan Monique MD 04/18/17 18:08 FINAL REPORT INDICATION: Intubation. COMPARISON: 04/18/2017 at 1232 hours. TECHNIQUE: A single AP view of the chest was obtained. FINDINGS: The endotracheal tube tip projects 3.8 cm above the davis. A nasogastric tube tip projects over the gastroesophageal junction. There is prominence of the central pulmonary vasculature with a questionab le left basilar opacity. The cardiac silhouette and osseous structures are unchanged. IMPRESSION: 1. Interval satisfactory placement of an endotracheal tube. 2. Nasogastric tube tip projects over the gastroesophageal junction. Advancement is recommended. 3. No change in a left basilar opacity. SL: [id number] Abdomen AP Abdomen AP Patient Name: MINERVA SILVA 04/18 - [facility] DX [facility] : 1955; Age: 61 years Female MR: [id number] Read by: Glory Keller MD Dictated Date/time: 04/18/17 18:09 Study: Abdomen AP DX 04/18/2017 5:23 PM CDT Electronically Signed by : Glory Keller MD 04/18/17 18:10 FINAL REPORT CLINICAL INDICATION: - Tube feeding placement COMPARISON: None FINDINGS: Nonspecific bowel gas pattern without evidence of dilatation, pneumatosis, or pneumoperitoneum. Nasogastric tube tip projects over the gastric body. No significant osseous abnormalities. IMPRESSION: Nasogastric tube tip projects over the gastric body. SL: [id number] Chest Chest 1view Study: Chest 1view DX 04/18 [facility] 1view DX DX [facility] Clinical Indication: rhonchi throughout, no h/o CHF - rhonchi throughout, no h/o CHF Read by: Kannan Reddy MD Dictated Date/time: 04/18/17 12:36 Electronically Signed by: Kannan Reddy MD 04/18/17 12:37 FINAL REPORT Comparison: None FINDINGS: Cardiac silhouette is mildly prominent. Mild bibasilar atelectasis is seen. No pleural effusion or pneumothorax is noted. The osseous structures are unremarkable. IMPRESSION: Mild bibasilar atelectasis SL: [id number] Vital Signs Vital Sign Value Date Comments Source Heart Rate 88 04/22/2017 [facility] Temperature Oral (F) 98.6 F 04/22/2017 [facility] Respitory Rate 18 04/22/2017 [facility] Systolic (mm Hg) 105 04/22/2017 [facility] Diastolic (mm Hg) 71 04/22/2017 [facility] Respitory Rate 18 04/22/2017 [facility] Systolic (mm Hg) 138 04/22/2017 [facility] Diastolic (mm Hg) 79 04/22/2017 [facility] Temperature Oral (F) 98.2 F 04/22/2017 [facility] Heart Rate 85 04/22/2017 [facility] Respitory Rate 18 04/22/2017 [facility] Systolic (mm Hg) 120 04/22/2017 [facility] Diastolic (mm Hg) 74 04/22/2017 [facility] Temperature Oral (F) 98.5 F 04/22/2017 [facility] Heart Rate 91 04/22/2017 [facility] Height 170.18 cm 04/19/2017 [facility] Height 170.18 cm 04/19/2017 [facility] Height 170.18 cm 04/19/2017 [facility] BMI Calculated 38.47 04/18/2017 [facility] Weight 111.4 04/18/2017 [facility] Weight 111.364 04/18/2017 [facility] Encounters Location Location Encounter Encounter Reason Attending ADM DC Status Source Details Type Number For Provider [id number] Des 04/18 04/22 [place] /2016 [facility] Procedures Procedure Code Date Perfomer Comments Source Cardiac [id number] [facility] catheterisation Hysterectomy [id number] [facility] Knee arthroplasty [id number] [facility] Tubal ligation [id number] [facility]
[2018-06-02] MEDS ORDERED: NA CHLORIDE 0.9% 2,000 ML ONE (14:04)
--- NOTE | 2018-06-02 14:08 | RAD REPORT ---
EXAM DESCRIPTION: RAD - Chest Single View - 06/02/2018 1:53 pm CLINICAL HISTORY: low blood pressure Chest pain. COMPARISON: No comparisons FINDINGS: Portable technique limits examination quality. The lungs are grossly clear. The heart is normal in size. No displaced fractures. IMPRESSION: No acute intrathoracic process suspected.
[2018-06-02 14:22] LABS: Absolute Lymphocytes (CBC) 4.1 K/uL (0.7-4.9); Absolute Monocytes 1.4 K/uL (0.1-1.3); Absolute Neutrophil 9.4 K/uL (1.8-8.0); Basophils % 0.6 % (0-1.3); Eosinophils % 1.4 % (0-4.4); Hematocrit 41.3 % (36.0-45.0); Lymphocytes % 26.7 % (15.3-44.8); MCH 31.5 pg (27.0-35.0); MCV 95.6 fL (80-100); MPV 10.5 fL (7.6-11.3); Monocytes % 9.1 % (3.3-12.3); RBC Red Blood Cell Count 4.32 M/uL (3.86-4.86)
[2018-06-02 14:25] LABS: Protime INR 0.9
[2018-06-02 14:36] LABS: ALT/SGPT 26 U/L (12-78); AST/SGOT 59 U/L (15-37); Albumin 3.6 g/dL (3.4-5.0); Alkaline Phosphatase 92 U/L (45-117); BUN Blood Urea Nitrogen 55 mg/dL (7-18); Bicarbonate 24 mmol/L (21-32); Bilirubin Direct < 0.1 mg/dL (0-0.2); Bilirubin Total 0.2 mg/dL (0.2-1.0); Glucose Level 100 mg/dL (74-106); Magnesium 2.3 mg/dL (1.8-2.4); NT PRO-BNP 247 pg/mL (<125); Potassium 4.5 mmol/L (3.5-5.1); Protein, Total 6.7 g/dL (6.4-8.2); Sodium Level 142 mmol/L (136-145)
[2018-06-02 14:57] LABS: Amylase Level 47 U/L (25-115); C-Reactive Protein < 2.90 mg/L (<3.00); Lipase 107 U/L (73-393)
--- NOTE | 2018-06-02 15:33 | ER ---
Nurse's Notes [facility] Name: Kaylee Thomas Age: 62 yrs Sex: Female : 1955 Arrival Date: 06/02/2018 Time: 13:15 Bed 8 Private MD: Out, of [facility] Diagnosis: Hypotension;Weakness;Altered mental status, unspecified Presentation: 06/02 13:28 Presenting complaint: Patient states: pt is confused and slurring words. nurse from dr. javy Villalta states they got back from lunch and she was drowsy and not responding right, valling asleep. pt states she took three gabapentin today, her tylenol with codeine, and her other medication, diabetes medications as well. pt given orange juice and crackers, still didn't improve any, bp there was 90/62. pt just had labs drawn, no interventions performed today. they will fax over pt medical information. Transition of care: patient was not received from another setting of care. Onset of symptoms was June 02, 2018 at 13:00. Risk Assessment: Do you want to hurt yourself or someone else? Patient reports no desire to harm self or others. Initial Sepsis Screen: Does the patient meet any 2 criteria? No. Patient's initial sepsis screen is negative. Does the patient have a suspected source of infection? No. Patient's initial sepsis screen is negative. Care prior to arrival: None. 13:28 Acuity: PATT 2 13:28 Method Of Arrival: Wheelchair Historical: - Allergies: 16:34 No Known Allergies; - Home Meds: 16:34 divalproex 500 mg oral TbEC 1 tab 2 times per day [Active]; metformin 1,000 mg Oral tab ch 1 tab 2 times per day [Active]; perphenazine 16 mg oral tab 1 tab three times a day [Active]; pantoprazole 40 mg oral TbEC 1 tab once daily [Active]; lisinopril 5 mg Oral tab 1 tab twice a day [Active]; glipizide 5 mg Oral tr24 1 tab twice a day [Active]; gabapentin 800 mg oral tab 1 tab 3 times per day [Active]; - PMHx: 16:34 leucocytosis; Diabetes - NIDDM; neuropathy; GERD; COPD; 16:49 Seizures; hepitis C; UTI; ch - PSHx: 16:49 Hysterectomy; knee R; Tubal ligation; ch - Immunization history:: Adult Immunizations unknown. - Social history:: Smoking status: Patient uses tobacco products, smokes one pack cigarettes per day. - Ebola Screening: : Patient denies travel to an Ebola-affected area in the 21 days before illness onset. Screenin:17 Abuse screen: Denies threats or abuse. Nutritional screening: No deficits noted. tw2 Tuberculosis screening: No symptoms or risk factors identified. Fall Risk None identified. Assessment: 13:30 General: Appears in no apparent distress. obese, Behavior is drowsy, pt is slurring her tw2 words. Pain: Complains of pain in "all over". Neuro: Level of Consciousness is obeys commands, drowsy. Oriented to person. Cardiovascular: Heart tones S1 S2 Patient's skin is warm and dry. Respiratory: Airway is patent Respiratory effort is even, unlabored, Respiratory pattern is regular, symmetrical, Breath sounds with wheezes bilaterally. GI: No signs and/or symptoms were reported involving the gastrointestinal system. Abdomen is round non-distended, obese, Bowel sounds present X 4 quads. : No signs and/or symptoms were reported regarding the genitourinary system. EENT: No signs and/or symptoms were reported regarding the EENT system. Derm: Skin is intact, is healthy with good turgor, Skin temperature is warm. Musculoskeletal: Range of motion: intact in all extremities. 14:43 Reassessment: Patient appears in no apparent distress at this time. No changes from tw2 previously documented assessment. Patient and/or family updated on plan of care and expected duration. Pain level reassessed. 16:20 Reassessment: Patient appears in no apparent distress at this time. No changes from tw2 previously documented assessment. Patient and/or family updated on plan of care and expected duration. Pain level reassessed. pt is sitting upright, falls asleep easily, arousable to verbal questions, pt requesting food at this time, tray ordered. 17:20 Reassessment: Patient appears in no apparent distress at this time. No changes from tw2 previously documented assessment. Patient and/or family updated on plan of care and expected duration. Pain level reassessed. 18:20 Reassessment: SEE [facility] CHARTING AT THIS TIME. tw2 18:36 Reassessment: pts daughter Romina ph#[phone] called and states "my mother is tw2 abusing her pain pills and she sees multiple doctors", instructed pts daughter to call social services analyst tomorrow morning to discuss this and discuss plan of care with hospitalist. 19:30 Reassessment: pt resting quietly, speech slurred initially but improved after a few bb minutes, IV site intact, patent with fluids infusing pt BP low notified Dr Nguyễn new orders received pt medicated see DEC. 20:17 Reassessment: no change in pt condition, IV site intact, patent, with fluids infusing bb report was called to Bonita Rod LVN for room 202. Vital Signs: 13:31 BP 86 / 51; Pulse 94; Resp 10; Temp 97.2; Pulse Ox 92% on R/A; Weight 99.79 kg; Height ch 5 ft. 4 in. (162.56 cm); Pain 0/10; 14:07 BP 101 / 69; Pulse 80; Resp 20; Pulse Ox 92% on R/A; tw2 14:43 BP 96 / 59; Pulse 82; Resp 15; Pulse Ox 97% on 2 lpm NC; tw2 15:55 BP 103 / 73; Pulse 83; Resp 18; Pulse Ox 98% on 2 lpm NC; tw2 17:00 BP 103 / 73; Pulse 79; Resp 17; Pulse Ox 98% on 2 lpm NC; tw2 19:35 BP 86 / 45; Pulse 79; Resp 20 S; Pulse Ox 97% on 3 lpm NC; bb 20:19 BP 101 / 63; Pulse 83; Resp 18 S; Pulse Ox 99% 3 lpm ; bb 13:31 Body Mass Index 37.76 (99.79 kg, 162.56 cm) ch 14:07 pt placed on 2L nc at this time, will continue to monitor tw2 ED Course: 13:15 Patient arrived in ED. sb2 13:16 Out, of [facility] is Private Physician. sb2 13:28 Bed in low position. Call light in reach. Side rails up X2. potline monitor on. Pulse tw2 ox on. NIBP on. Warm blanket given. 13:30 Triage completed. ch 13:31 Arm band placed on left wrist. Patient placed in an exam room, on a stretcher. ch 13:32 Dante Ramirez MD is Attending Physician. kdr 13:48 X-ray completed. Portable x-ray completed in exam room. Patient tolerated procedure jb2 well. 13:49 XRAY Chest (1 view) In Process Unspecified. EDMS 13:51 Manuel Lao, RN is Primary Nurse. sg 14:21 EKG done, by technical report writer. reviewed by Dante Ramirez MD. sm3 15:31 Belinda Fonseca MD is Hospitalizing Provider. kdr 15:49 CT Head Brain wo Cont In Process Unspecified. EDMS 17:08 EKG done, by technical report writer. reviewed by Dante Ramirez MD. sm3 18:21 No provider procedures requiring assistance completed. Patient admitted, IV remains in tw2 place. 18:54 Report given to RK Baird. tw2 Administered Medications: 14:05 Drug: NS 0.9% (30 ml/kg) 30 ml/kg Route: IV; Rate: bolus; Site: right forearm; tw2 14:06 Drug: NS 0.9% (30 ml/kg) 30 ml/kg {Note: 2nd Liter of NS started at this time.} Route: tw2 IV; Rate: bolus; Site: right forearm; 17:00 Follow up: Response: No adverse reaction; IV Status: Completed infusion; IV Intake: tw2 2000ml 15:42 Not Given (pts condition): Tylenol #3 (300 mg-30 mg) 1 tablet PO once iw 15:59 Drug: Motrin 800 mg Route: PO; tw2 18:13 Follow up: Response: No adverse reaction tw2 19:39 Drug: NS 0.9% 250 ml Route: IV; Rate: bolus; Site: right antecubital; bb 19:54 Follow up: IV Status: Completed infusion; IV Intake: 250ml bb Intake: 17:00 IV: 2000ml; Total: 2000ml. tw2 19:54 IV: 250ml; Total: 2250ml. bb Outcome: 15:32 Decision to Hospitalize by Provider. kdr 18:21 Admitted to ER Hold. Please see [facility] for further documentation. tw2 18:21 Condition: stable 18:21 Instructed on the need for admit. 20:56 Patient left the ED. ak1 Signatures: Dispatcher [employer] EDMS Arlette Johnson RN RN Manuel Lao RN RN sg Rittger, Kevin, MD MD [facility] John jb2 Jil Trotter RN RN bb Brie Ku RN RN ak1 Katharine Goyal RN RN tw2 Marleny Ruffin 2 Marlee Ramachandran 3 Kat Galvan RN iw Corrections: (The following items were deleted from the chart) 16:35 13:30 Allergies: unknown; [facility]
--- NOTE | 2018-06-02 15:33 | EDPHYS ---
Physician Documentation [facility] Name: Kaylee Thomas Age: 62 yrs Sex: Female : 1955 Arrival Date: 06/02/2018 Time: 13:15 Bed 8 Private MD: Out, [facility] ED Physician Dante Ramirez HPI: 06/02 15:38 This 62 yrs old Female presents to ER via Wheelchair with complaints of Blood kdr Pressure Problem - LOW. 15:38 The patient was at her Dr. for appointment. Apparently her WBC count had been high in kdr the past and there was concern for possible cancer. When she fell asleep in the office, the staff became concerned. She was noted at that time to be hypotensive and could not stand without falling. She was taken by ambulance from the office to the ED. She was noted to be hypotensive upon arrival, She does have a prior history of COPD.. Onset: The symptoms/episode began/occurred just prior to arrival. Severity of symptoms: At their worst the symptoms were mild moderate just prior to arrival, in the emergency department the symptoms are unchanged. It is unknown whether or not the patient has had similar symptoms in the past. It is unknown whether or not the patient has recently seen a physician. Historical: - Allergies: 16:34 No Known Allergies; ch - Home Meds: 16:34 divalproex 500 mg oral TbEC 1 tab 2 times per day [Active]; metformin 1,000 mg Oral tab ch 1 tab 2 times per day [Active]; perphenazine 16 mg oral tab 1 tab three times a day [Active]; pantoprazole 40 mg oral TbEC 1 tab once daily [Active]; lisinopril 5 mg Oral tab 1 tab twice a day [Active]; glipizide 5 mg Oral tr24 1 tab twice a day [Active]; gabapentin 800 mg oral tab 1 tab 3 times per day [Active]; - PMHx: 16:34 leucocytosis; Diabetes - NIDDM; neuropathy; GERD; COPD; ch 16:49 Seizures; hepitis C; UTI; ch - PSHx: 16:49 Hysterectomy; knee R; Tubal ligation; ch - Immunization history:: Adult Immunizations unknown. - Social history:: Smoking status: Patient uses tobacco products, smokes one pack cigarettes per day. - Ebola Screening: : Patient denies travel to an Ebola-affected area in the 21 days before illness onset. ROS: 15:38 Constitutional: Negative for fever, chills, and weight loss, Eyes: Negative for injury, kdr pain, redness, and discharge, ENT: Negative for injury, pain, and discharge, Neck: Negative for injury, pain, and swelling, Cardiovascular: Negative for chest pain, palpitations, and edema, Respiratory: Negative for shortness of breath, cough, wheezing, and pleuritic chest pain, Abdomen/GI: Negative for abdominal pain, nausea, vomiting, diarrhea, and constipation, Back: Negative for injury and pain, : Negative for injury, bleeding, discharge, and swelling, MS/Extremity: Negative for injury and deformity, Skin: Negative for injury, rash, and discoloration, Psych: Negative for depression, anxiety, suicide ideation, homicidal ideation, and hallucinations, Allergy/Immunology: Negative for hives, rash, and allergies, Endocrine: Negative for neck swelling, polydipsia, polyuria, polyphagia, and marked weight changes, Hematologic/Lymphatic: Negative for swollen nodes, abnormal bleeding, and unusual bruising. 15:38 Neuro: Positive for altered mental status, dizziness, gait disturbance, weakness. Exam: 15:38 Constitutional: This is a well developed, well nourished patient who is awake, alert, kdr and in no acute distress. Head/Face: Normocephalic, atraumatic. Eyes: Pupils equal round and reactive to light, extra-ocular motions intact. Lids and lashes normal. Conjunctiva and sclera are non-icteric and not injected. Cornea within normal limits. Periorbital areas with no swelling, redness, or edema. Neck: Trachea midline, no thyromegaly or masses palpated, and no cervical lymphadenopathy. Supple, full range of motion without nuchal rigidity, or vertebral point tenderness. No Meningismus. Chest/axilla: Normal chest wall appearance and motion. Nontender with no deformity. No lesions are appreciated. Cardiovascular: Regular rate and rhythm with a normal S1 and S2. No gallops, murmurs, or rubs. Normal PMI, no JVD. No pulse deficits. Respiratory: Lungs have equal breath sounds bilaterally, clear to auscultation and percussion. No rales, rhonchi or wheezes noted. No increased work of breathing, no retractions or nasal flaring. Abdomen/GI: Soft, non-tender, with normal bowel sounds. No distension or tympany. No guarding or rebound. No evidence of tenderness throughout. Back: No spinal tenderness. No costovertebral tenderness. Full range of motion. Skin: Warm, dry with normal turgor. Normal color with no rashes, no lesions, and no evidence of cellulitis. MS/ Extremity: Pulses equal, no cyanosis. Neurovascular intact. Full, normal range of motion. Psych: Awake, alert, with orientation to person, place and time. Behavior, mood, and affect are within normal limits. 15:38 Psych: Behavior/mood is pleasant, cooperative, Affect is flat, Oriented to person, place, time, Patient has no thoughts/intents to harm self or others. Judgement / Insight is impaired. Delusions/hallucinations are not present. Vital Signs: 13:31 BP 86 / 51; Pulse 94; Resp 10; Temp 97.2; Pulse Ox 92% on R/A; Weight 99.79 kg; Height ch 5 ft. 4 in. (162.56 cm); Pain 0/10; 14:07 BP 101 / 69; Pulse 80; Resp 20; Pulse Ox 92% on R/A; tw2 14:43 BP 96 / 59; Pulse 82; Resp 15; Pulse Ox 97% on 2 lpm NC; tw2 15:55 BP 103 / 73; Pulse 83; Resp 18; Pulse Ox 98% on 2 lpm NC; tw2 17:00 BP 103 / 73; Pulse 79; Resp 17; Pulse Ox 98% on 2 lpm NC; tw2 19:35 BP 86 / 45; Pulse 79; Resp 20 S; Pulse Ox 97% on 3 lpm NC; bb 20:19 BP 101 / 63; Pulse 83; Resp 18 S; Pulse Ox 99% 3 lpm ; bb 13:31 Body Mass Index 37.76 (99.79 kg, 162.56 cm) ch 14:07 pt placed on 2L nc at this time, will continue to monitor tw2 MDM: 15:32 Patient medically screened. kdr 15:57 Data reviewed: vital signs, nurses notes, lab test result(s), radiologic studies. kdr Counseling: I had a detailed discussion with the patient and/or guardian regarding: the historical points, exam findings, and any diagnostic results supporting the discharge/admit diagnosis, lab results, radiology results, the need for further work-up and treatment in the hospital. 06/02 13:33 Order name: Basic Metabolic Panel; Complete Time: 15:23 [facility] 06/02 13:33 Order name: CBC with Diff; Complete Time: 15:23 kdr 06/02 13:33 Order name: LFT's; Complete Time: 15:23 [facility] 06/02 13:33 Order name: Magnesium; Complete Time: 15:23 kdr 06/02 13:33 Order name: NT PRO-BNP; Complete Time: 15:23 kdr 06/02 13:33 Order name: PT-INR; Complete Time: 15:23 kdr 06/02 13:33 Order name: Ptt, Activated; Complete Time: 15:23 kdr 06/02 13:33 Order name: Troponin (emerg Dept Use Only); Complete Time: 15:23 [facility] 06/02 13:41 Order name: Amylase, Serum [facility] 06/02 13:41 Order name: Blood Culture Adult (2) [facility] 06/02 13:41 Order name: C-Reactive Protein; Complete Time: 15:23 [facility] 06/02 13:41 Order name: Lactate; Complete Time: 15:23 [facility] 06/02 13:41 Order name: Lipase; Complete Time: 15:23 [facility] 06/02 13:41 Order name: Procalcitonin; Complete Time: 15:23 [facility] 06/02 13:33 Order name: XRAY Chest (1 view); Complete Time: 15:23 [facility] 06/02 13:41 Order name: Sed Rate; Complete Time: 15:23 [facility] 06/02 13:43 Order name: Amylase Level; Complete Time: 15:23 EDIN 06/02 15:27 Order name: CT Head Brain wo Cont [facility] 06/02 16:38 Order name: D-Dimer EDIN 06/02 17:06 Order name: Lactate EDIN 06/02 17:06 Order name: Basic Metabolic Panel EDIN 06/02 17:06 Order name: Basic Metabolic Panel EDIN 06/02 17:06 Order name: CBC with Automated Diff EDIN 06/02 17:07 Order name: CBC with Automated Diff EDMS 06/02 18:20 Order name: Urine Dipstick--Ancillary (enter results) 06/02 18:28 Order name: Urine Dipstick-Ancillary EDIN 06/02 13:33 Order name: EKG; Complete Time: 13:34 kdr 06/02 13:33 Order name: Cardiac monitoring; Complete Time: 13:56 kdr 06/02 13:33 Order name: EKG - Nurse/Tech; Complete Time: 13:56 kdr 06/02 13:33 Order name: IV Saline Lock; Complete Time: 13:56 kdr 06/02 13:33 Order name: Labs collected and sent; Complete Time: 13:56 kdr 06/02 13:33 Order name: O2 Per Protocol; Complete Time: 13:56 kdr 06/02 13:33 Order name: O2 Sat Monitoring; Complete Time: 13:56 kdr 06/02 13:33 Order name: Urine Dipstick-Ancillary (obtain specimen); Complete Time: 18:19 kdr 06/02 13:41 Order name: IV Saline Lock - Large Bore; Complete Time: 13:57 kdr 06/02 16:15 Order name: Diet Heart Healthy; Complete Time: 16:16 iw 06/02 16:37 Order name: EKG Electrocardiogram EDIN 06/02 17:06 Order name: Physical Therapy Consult EDIN Administered Medications: 14:05 Drug: NS 0.9% (30 ml/kg) 30 ml/kg Route: IV; Rate: bolus; Site: right forearm; tw2 14:06 Drug: NS 0.9% (30 ml/kg) 30 ml/kg {Note: 2nd Liter of NS started at this time.} Route: tw2 IV; Rate: bolus; Site: right forearm; 17:00 Follow up: Response: No adverse reaction; IV Status: Completed infusion; IV Intake: tw2 2000ml 15:42 Not Given (pts condition): Tylenol #3 (300 mg-30 mg) 1 tablet PO once iw 15:59 Drug: Motrin 800 mg Route: PO; tw2 18:13 Follow up: Response: No adverse reaction tw2 19:39 Drug: NS 0.9% 250 ml Route: IV; Rate: bolus; Site: right antecubital; bb 19:54 Follow up: IV Status: Completed infusion; IV Intake: 250ml bb Disposition: 06/02/18 15:32 Hospitalization ordered by Belinda Fonseca for Observation. Preliminary diagnosis are Hypotension, Weakness, Altered mental status, unspecified. - Bed requested for Telemetry/MedSurg (observation). - Status is Observation. ak1 - Condition is Stable. - Problem is new. - Symptoms have improved. UTI on Admission? No Signatures: Dispatcher [employer] EDMS Kaylee Altman bd Arlette Johnson, RN RK Dante Ramirez MD MD [facility] Jil Trotter, RN RN bb Kat Galvan, RN RN iw Brie Ku, RN RN ak1 Katharine Goyal, RN RN tw2 Corrections: (The following items were deleted from the chart) 14:06 13:41 Accucheck ordered. kdr tw2 16:11 15:32 Hospitalization Ordered by Belinda Fonseca MD for Observation. Preliminary iw diagnosis is Hypotension; Weakness; Altered mental status, unspecified. Bed requested for Telemetry/MedSurg (observation). Status is Observation. Condition is Stable. Problem is new. Symptoms have improved. UTI on Admission? No. kdr 16:35 13:30 Allergies: unknown; [facility] 17:59 16:11 06/02/2018 15:32 Hospitalization Ordered by Belinda Fonseca MD for Observation. bd Preliminary diagnosis is Hypotension; Weakness; Altered mental status, unspecified. Bed requested for [facility] ER HOLD. Status is Observation. Condition is Stable. Problem is new. Symptoms have improved. UTI on Admission? No. iw 20:56 17:59 06/02/2018 15:32 Hospitalization Ordered by Belinda Fonseca MD for Observation. ak1 Preliminary diagnosis is Hypotension; Weakness; Altered mental status, unspecified. Bed requested for Telemetry/MedSurg (observation). Status is Observation. Condition is Stable. Problem is new. Symptoms have improved. UTI on Admission? No. bd
[2018-06-02] MEDS ORDERED: IBUPROFEN 400 MG TAB ONE (15:47)
--- NOTE | 2018-06-02 15:54 | RAD REPORT ---
EXAM DESCRIPTION: CT - Head Brain Wo Cont - 06/02/2018 3:49 pm CLINICAL HISTORY: confusion, hypotension;Confused Drowsiness COMPARISON: No comparisons TECHNIQUE: All CT scans are performed using dose optimization technique as appropriate and may inclu de automated exposure control or mA/KV adjustment according to patient size. FINDINGS: No intracranial hemorrhage, hydrocephalus or extra-axial fluid collection.No areas of brai n edema or evidence of midline shift. The paranasal sinuses and mastoids are clear. The calvarium is intact. IMPRESSION: No acute intracranial abnormality.
[2018-06-02] MEDS ORDERED: ONDANSETRON 4 MG/2 ML VIAL IV PRN (17:04)
--- NOTE | 2018-06-02 17:27 | P.HP ---
Certification for Inpatient Patient admitted to: Observation With expected LOS: <2 Midnights Practitioner: I am a practitioner with admitting privileges, knowledge of patient current condition, hospital course, and medical plan of care. Services: Services provided to patient in accordance with Admission requirements found in Title 42 Section 412.3 of the Code of Federal Regulations Patient History Date of Service: 06/02/18 Reason for admission: Acute encephalopathy History of Present Illness: Ms Thomas is a 62-year-old woman with history of chronic back pain, who was referred to Dr. Francis due to leukocytosis. When the patient arrived the office, she was weak and confused. She was taking her usual pain medication which include gabapentin 3 pills, Tylenol #3 another 3 pills. Her BP was 80s/ 60s current she denied any chest pain, however she stated that has been more short of breath lately because she has been smoking more. No history of fever or chills. At arrival to the ER her BP was still low, 90's/60's. Chest-x-ray shows no acute abnormality, CT of the head showed no acute abnormalities either. Lab work was remarkable for leukocytosis, 15.2K, elevated creatinine ( 2.20) consistent with acute renal failure. Allergies No Known Allergies Allergy (Unverified 06/02/18 16:27) Home medications list reviewed: Yes - Past Medical/Surgical History -: Chronic pain syndrome -: Back surgery - Family History Family History: Reviewed- Non-Contributory - Social History Smoking Status: Current every day smoker Counseled patient to stop smoking for: less than 10 minutes Smoking therapy provided: Yes Patient receptive to therapy: No Alcohol use: No CD- Drugs: No Place of Residence: Home Review of Systems 10-point ROS is otherwise unremarkable Physical Examination - Physical Exam General: Alert, In no apparent distress, Confused HEENT: Atraumatic, PERRLA, Mucous membr. moist/pink, EOMI, Sclerae nonicteric Neck: Supple, 2+ carotid pulse no bruit, No LAD, Without JVD or thyroid abnormality Respiratory: Diminished, Expiratory wheezes Cardiovascular: Regular rate/rhythm, Normal S1 S2 Gastrointestinal: Normal bowel sounds, No tenderness Musculoskeletal: No tenderness Integumentary: No rashes Neurological: Normal speech, Normal strength at 5/5 x4 extr, Normal tone, Normal affect Lymphatics: No axilla or inguinal lymphadenopathy - Studies Laboratory Data (last 24 hrs) 06/02/18 14:00: Amylase 47, Lipase 107 06/02/18 14:00: PT 10.6, INR 0.90, APTT 30.1 06/02/18 14:00: WBC 15.2 H, Hgb 13.6, Hct 41.3, Plt Count 207 06/02/18 14:00: Sodium 142, Potassium 4.5, BUN 55 H, Creatinine 2.20 H, Glucose 100, Magnesium 2.3, Total Bilirubin 0.2, AST 59 H, ALT 26, Alkaline Phosphatase 92 Assessment and Plan - Problems (Diagnosis) (1) Acute encephalopathy Current Visit: Yes Status: Acute (2) Chronic back pain Current Visit: Yes Status: Acute Qualifiers: Back pain location: low back pain Back pain laterality: unspecified Sciatica presence: unspecified whether sciatica present Qualified Code(s): M54.5 - Low back pain; G89.29 - Other chronic pain - Plan Patient will be admitted for observation due to acute encephalopathy, differential diagnosis include medication overdose. At time my examination she was more alert, however she was still some confused. Her creatinine was elevated on likely secondary to volume depletion. Blood pressure improved after IV fluid infusion. O2 sats was 90% on room air, she probably has an underlying COPD which not yet diagnosed. D-dimer pending, his positive will do a CTA chest to rule out pulmonary embolism. Will hold her pain medication on evaluate her status in a.m. - Advance Directives Does patient have a Living Will: No Does patient have a Durable POA for Healthcare: No - Code Status/Comfort Care Code Status Assessed: Yes Code Status: Full Code
[2018-06-02] MEDS ORDERED: NA CHLORIDE 0.9% 1,000 ML ONE (17:50)
[2018-06-02] MEDS ORDERED: ENOXAPARIN 40 MG/0.4 ML SQ ONE (17:50)
[2018-06-02] MEDS: ENOXAPARIN 40 MG/0.4 ML SQ SCH (18:10)
[2018-06-02] MEDS: NA CHLORIDE 0.9% 1,000 ML IV SCH ×2 (18:14→20:58)
[2018-06-02 18:28] LABS: Urine Blood 2+ (NEG); Urine Glucose NEGATIVE (NEG); Urine Protein TRACE (NEG); Urine Specific Gravity 1.015 (1.005-1.030); Urine pH 5.5 (5.0-7.0)
[2018-06-03] MEDS: NA CHLORIDE 0.9% 1,000 ML IV SCH ×2 (03:11→13:04)
[2018-06-03] MEDS: ACETAMINOPHEN 500 MG TAB PO PRN ×2 (04:18→08:55)
[2018-06-03 07:02] LABS: Absolute Lymphocytes (CBC) 2.5 K/uL (0.7-4.9); Absolute Monocytes 0.9 K/uL (0.1-1.3); Absolute Neutrophil 5.2 K/uL (1.8-8.0); Basophils % 0.3 % (0-1.3); Eosinophils % 1.9 % (0-4.4); Hematocrit 39.1 % (36.0-45.0); Lymphocytes % 28.6 % (15.3-44.8); MCH 31.9 pg (27.0-35.0); MCV 96.7 fL (80-100); MPV 10.1 fL (7.6-11.3); Monocytes % 10.2 % (3.3-12.3); RBC Red Blood Cell Count 4.04 M/uL (3.86-4.86)
[2018-06-03 07:21] LABS: Potassium 4.5 mmol/L (3.5-5.1)
[2018-06-03] MEDS: ENOXAPARIN 40 MG/0.4 ML SQ SCH (08:55)
--- NOTE | 2018-06-03 16:19 | EKG ---
Test Date: 2018-06-02 Test Time: 16:50:45 Stone Grader: THEODORE MEASUREMENT RESULTS: Intervals: Rate: 80 AR: 150 QRSD: 88 QT: 382 QTc: 440 [place]: P: 44 AR: 150 QRS: 0 T: 17 INTERPRETIVE STATEMENTS: Normal sinus rhythm Normal ECG Compared to ECG 06/02/2018 14:05:45 No significant changes Electronically Signed On 06-03-18 16:14:52 CDT by Vincent Delgadillo
--- NOTE | 2018-06-03 16:20 | EKG ---
Test Date: 2018-06-02 Test Time: 14:05:45 Hot Blaster: THEODORE MEASUREMENT RESULTS: Intervals: Rate: 80 CA: 144 QRSD: 86 QT: 372 QTc: 429 [place]: P: 62 CA: 144 QRS: 33 T: 53 INTERPRETIVE STATEMENTS: Normal sinus rhythm Normal ECG Compared to ECG 12/27/2003 09:11:00 T-wave abnormality no longer present Electronically Signed On 06-03-18 16:14:59 CDT by Vincent Delgadillo
--- NOTE | 2018-06-03 18:12 | P.SSS ---
Patient History Date of Service: 06/03/18 Reason for admission: Acute encephalopathy History of Present Illness: Ms Thomas is a 62-year-old woman with history of chronic back pain, who was referred to Dr. Francis due to leukocytosis. When the patient arrived the office, she was weak and confused. She was taking her usual pain medication which include gabapentin 3 pills, Tylenol #3 another 3 pills. Her BP was 80s/ 60s current she denied any chest pain, however she stated that has been more short of breath lately because she has been smoking more. No history of fever or chills. At arrival to the ER her BP was still low, 90's/60's. Chest-x-ray shows no acute abnormality, CT of the head showed no acute abnormalities either. Lab work was remarkable for leukocytosis, 15.2K, elevated creatinine ( 2.20) consistent with acute renal failure. Allergies No Known Allergies Allergy (Unverified 06/02/18 21:12) Home Medications: Albuterol Inhaler [Ventolin Inhaler*] 2 puff IH Q6H PRN 06/02/18 Divalproex Sodium [Depakote] 500 mg PO BID 06/02/18 Glipizide [Glucotrol] 10 mg PO DAILY 06/02/18 Lisinopril 10 mg PO DAILY 06/02/18 Metformin ER [Glucophage ER*] 1,000 mg PO DAILY 06/02/18 Tramadol HCl [Ultram] 50 mg PO Q6HP PRN 06/02/18 Gabapentin [Neurontin*] 400 mg PO BID #60 cap 06/03/18 - Past Medical/Surgical History Has patient received pneumonia vaccine in the past: No -: Chronic pain syndrome -: Back surgery - Family History Family History: Reviewed- Non-Contributory - Social History Smoking Status: Current every day smoker Alcohol use: No CD- Drugs: No Caffeine use: No Place of Residence: Home Review of Systems 10-point ROS is otherwise unremarkable Physical Examination - Vital Signs Temperature: 98.2 F Blood Pressure: 131/63 Pulse: 77 Respirations: 18 Pulse Ox (%): 95 - Physical Exam General: Alert, In no apparent distress HEENT: Atraumatic, PERRLA, Mucous membr. moist/pink, EOMI, Sclerae nonicteric Neck: Supple, 2+ carotid pulse no bruit, No LAD, Without JVD or thyroid abnormality Respiratory: Clear to auscultation bilaterally, Normal air movement Cardiovascular: Regular rate/rhythm, Normal S1 S2 Gastrointestinal: Normal bowel sounds, No tenderness Musculoskeletal: No tenderness Integumentary: No rashes Neurological: Normal gait, Normal speech, Normal strength at 5/5 x4 extr, Normal tone, Normal affect Lymphatics: No axilla or inguinal lymphadenopathy - Diagnosis (Problem(s)) (1) Altered mental status, unspecified Status: Resolved Qualifiers: Altered mental status type: disorientation Qualified Code(s): R41.0 - Disorientation, unspecified (2) Hypotension Status: Acute Qualifiers: Hypotension type: hypotension due to hypovolemia Qualified Code(s): I95.89 - Other hypotension; E86.1 - Hypovolemia (3) Chronic back pain Status: Chronic Qualifiers: Back pain location: low back pain Back pain laterality: unspecified Sciatica presence: unspecified whether sciatica present Qualified Code(s): M54.5 - Low back pain; G89.29 - Other chronic pain Treatment Summary: Overall during the hospital stay patient remained stable Patient was initially admitted to the hospital for altered mental status and hypotension. Patient's hypertension was most likely secondary to dehydration versus drug interaction. Patient had taken pain medication along with her gabapentin which has caused her to be dehydrated and hypotensive thus causing her to have a disorientation. This morning however patient was alert and oriented x3 had resolution of her symptoms and her blood pressure had normalized and thus was discharged home under stable condition patient was asked to change her gabapentin dosage from 800 mg b.i.d. to 400 mg b.i.d. and was asked to stop taking her Tylenol 3. And to continue with tramadol. Patient was asked to follow up with primary care doctor for a followup in 1-2 weeks post discharge. - Disposition Disposition: ROUTINE DISCHARGE Condition: GOOD Patient Discharge Instructions: Please f.u with PCP and Dr Vora in 1 week post discharge. You will be needed to be started on long acting beta agonist for your COPD which can be discussed with Dr Vora after the apptoinment. Change medication. Gabapentin 400mg BID which was changed from 800mg BID. Stop taking Tylenol# 3 Diet: Regular Activity: Ad jenny
== END 2018-06-03 14:58 | disposition home or self-care (01) ==
LOC: ER 13:15 → ERHOLD 17:05 → 2ND 20:35
PROVIDERS: ADMIT Internal Medicine; ATTEND Internal Medicine
DX: R41.82 Altered mental status, unspecified (principal); I95.9 Hypotension, unspecified; M54.5 Low back pain; F17.210 Nicotine dependence, cigarettes, uncomplicated; E86.0 Dehydration
CPT/HCPCS: 36415; 70450; 71045; 80048 ×2; 80076; 81003; 82150; 82962; 83605 ×2; 83690; 83735; 83880; 84145; 84484; 85025 ×2; 85379; 85610; 85652; 85730; 86140; 87040 ×2; 93005 ×2; 94760 ×2; 96360; 96361; 97163; 99285; G0378 ×2; J1650 ×2; J7030 ×3; 96365; 96366